=== PATIENT | female | born 1980 | race Caucasian/White ===

== ENCOUNTER 2018-07-02 10:55 | Outpatient (CLI) | payer OTHER | END 2018-07-02 10:56 | disposition home or self-care (01) | LOC: C.LAB 10:55 | DX: Z34.01 Encounter for supervision of normal first pregnancy, first trimester (principal) ==

== ENCOUNTER 2018-08-21 11:46 | Outpatient (CLI) | payer OTHER | END 2018-08-21 11:47 | disposition home or self-care (01) | LOC: C.LAB 11:46 | DX: Z34.02 Encounter for supervision of normal first pregnancy, second trimester (principal) ==